=== PATIENT | male | born 1935 | race Caucasian/White ===

== ENCOUNTER 2017-04-15 08:40 | Day surgery (SDC) | payer MEDICARE, BC ==
[2017-04-15] MEDS: NS 1,000 ML IV (09:00)
[2017-04-15] MEDS ORDERED: PROPOFOL 500 MG/50 ML VIAL As Ordered (11:02)
[2017-04-15] MEDS ORDERED: LIDOCAINE 2% INJ 100 MG/5 ML SDV (FOR ANES.) As Ordered (11:02)
== END 2017-04-15 10:54 | disposition home or self-care (01) ==
LOC: M OPP 08:40
DX: D50.9 Iron deficiency anemia, unspecified (principal); K29.70 Gastritis, unspecified, without bleeding; K44.9 Diaphragmatic hernia without obstruction or gangrene; R00.8 Other abnormalities of heart beat; I25.10 Atherosclerotic heart disease of native coronary artery without angina pectoris; I12.9 Hypertensive chronic kidney disease with stage 1 through stage 4 chronic kidney disease, or unspecified chronic kidney disease; E78.5 Hyperlipidemia, unspecified; Z95.0 Presence of cardiac pacemaker; M10.9 Gout, unspecified; E21.2 Other hyperparathyroidism; K21.9 Gastro-esophageal reflux disease without esophagitis; R12 Heartburn; M19.90 Unspecified osteoarthritis, unspecified site; J45.909 Unspecified asthma, uncomplicated; G47.8 Other sleep disorders; G47.30 Sleep apnea, unspecified; R06.83 Snoring; N18.4 Chronic kidney disease, stage 4 (severe); N40.1 Benign prostatic hyperplasia with lower urinary tract symptoms; Z96.641 Presence of right artificial hip joint; Z91.018 Allergy to other foods; Z91.048 Other nonmedicinal substance allergy status; Z91.040 Latex allergy status; Z79.82 Long term (current) use of aspirin; Z79.899 Other long term (current) drug therapy
CPT/HCPCS: 43239

== ENCOUNTER 2018-10-13 07:52 | Day surgery (SDC) | payer MEDICARE, BC ==
[~2018-10-13] VITALS: Ht 167.6 cm; Wt 83.9 kg
[~2018-10-13 07:52] MED LIST: ADV100INH INH; ASPI81TA26 PO; ATOR1TAB19 PO; BISO5TAB14 PO; D31000CA4 PO; FEBU40TA4 PO; FERR1TAB8 PO; FEXO60CA PO; FINA5TAB2 PO; FLOM0.4C39 PO; IRBE150T12 PO; LASI40TA9 PO; LIDOCAINE 2% INJ 100 MG/5 ML SDV (FOR ANES.) As Ordered ONE; LOSA50TA88 PO; NASA1SPR; NEXI40CA PO; NS 1,000 ML IV ONE; VENTAER IN; VITA100067 PO; [UNRECOGNIZED DRUG - CODE] IM; propofoL 200 MG/20 ML VIAL As Ordered ONE
[2018-10-13] MEDS ORDERED: propofoL 200 MG/20 ML VIAL As Ordered ONE ×2 (09:14→10:28)
[2018-10-13] MEDS ORDERED: LIDOCAINE 2% INJ 100 MG/5 ML SDV (FOR ANES.) As Ordered ONE (09:14)
--- NOTE | 2018-10-13 10:58 | ROOR ---
Patient Name: Kendall Bergman Procedure Date: 10/13/2018 10:08 AM Date of : 1935 Age: 82 Room: [facility] Gender: Male Note Status: Finalized Procedure: Colonoscopy Indications: Iron deficiency anemia Providers: Edwin Fu MD Referring MD: BRYAN MAHONEY MD Requesting Provider: Medicines: Monitored Anesthesia Care Complications: No immediate complications. Procedure: Pre-Anesthesia Assessment: - Prior to the procedure, a History and Physical was performed, and patient medications and allergies were reviewed. The patient is competent. The risks and benefits of the procedure and the sedation options and risks were discussed with the patient. All questions were answered and informed consent was obtained. Patient identification and proposed procedure were verified by the physician, the nurse and the anesthesiologist in the procedure room. Mental Status Examination: alert and oriented. Airway Examination: normal oropharyngeal airway and neck mobility. Respiratory Examination: clear to auscultation. CV Examination: normal. Prophylactic Antibiotics: The patient does not require prophylactic antibiotics. Prior Anticoagulants: The patient has taken no previous anticoagulant or antiplatelet agents. ASA Grade Assessment: II - A patient with mild systemic disease. After reviewing the risks and benefits, the patient was deemed in satisfactory condition to undergo the procedure. The anesthesia plan was to use monitored anesthesia care (MAC). Immediately prior to administration of medications, the patient was re-assessed for adequacy to receive sedatives. The heart rate, respiratory rate, oxygen saturations, blood pressure, adequacy of pulmonary ventilation, and response to care were monitored throughout the procedure. The physical status of the patient was re-assessed after the procedure. The Colonoscope was introduced through the anus and advanced to the cecum, identified by appendiceal orifice and ileocecal valve. The colonoscopy was performed without difficulty. The patient tolerated the procedure well. The quality of the bowel preparation was good. The ileocecal valve, appendiceal orifice, and rectum were photographed. Scope insertion time was 3 minutes. Scope withdrawal time was 10 minutes. The total duration of the procedure was 14 minutes. Findings: The perianal and digital rectal examinations were normal. Four sessile polyps were found in the transverse colon and ascending colon. The polyps were 4 to 6 mm in size. These polyps were removed with a cold snare. Resection and retrieval were complete. Verification of patient identification for the specimen was done by the physician and nurse using the patient's name, date and medical record number. Estimated blood loss was minimal. A few small-mouthed diverticula were found in the sigmoid colon. There was no evidence of diverticular bleeding. Non-bleeding external and internal hemorrhoids were found during retroflexion. The hemorrhoids were moderate. Impression: - Four 4 to 6 mm polyps in the transverse colon and in the ascending colon, removed with a cold snare. Resected and retrieved. - Mild diverticulosis in the sigmoid colon. There was no evidence of diverticular bleeding. - Non-bleeding external and internal hemorrhoids. Recommendation: - Patient has a contact number available for emergencies. The signs and symptoms of potential delayed complications were discussed with the patient. Return to normal activities tomorrow. Written discharge instructions were provided to the patient. - High fiber diet. - Continue present medications. - Await pathology results. - Repeat colonoscopy is not recommended due to current age (66 years or older) for screening purposes and depending on clinical and functional status. - Telephone GI clinic for pathology results in 2 weeks. - Return to primary care physician. Edwin Fu MD Edwin Fu MD 10/13/2018 10:58:11 AM Electronically signed by Edwin Fu MD Number of Addenda: 0 Note Initiated On: 10/13/2018 10:08 AM Estimated Blood Loss: Estimated blood loss was minimal.
[2018-10-13 11:20] VITALS: BP 136/81
== END 2018-10-13 11:40 | disposition home or self-care (01) ==
LOC: M OPP 07:52
PROVIDERS: ATTEND Internal Medicine Gastroenterology
DX: D12.2 Benign neoplasm of ascending colon (principal); D12.3 Benign neoplasm of transverse colon; K57.30 Diverticulosis of large intestine without perforation or abscess without bleeding; K64.8 Other hemorrhoids; D50.9 Iron deficiency anemia, unspecified

== ENCOUNTER 2022-10-18 13:35 | Inpatient (IN) | payer MEDICARE, BC ==
[~2022-10-18] VITALS: Ht 157.5 cm; Wt 69.4 kg
[2022-10-18] VITALS (8 sets, daily range): BP systolic 101–148; BP diastolic 48–65; TEMP 96.7–98.3; O2SAT 98–100
[~2022-10-18 13:35] MED LIST changes: -FEXO60CA PO; +FEXO60TA99 PO; -IRBE150T12 PO; +IRBE150T7 PO; -LIDOCAINE 2% INJ 100 MG/5 ML SDV (FOR ANES.) As Ordered ONE; +LOSA50TA28 PO; -LOSA50TA88 PO; -NS 1,000 ML IV ONE; -VENTAER IN; +VENTAER INH; -propofoL 200 MG/20 ML VIAL As Ordered ONE
[2022-10-18 15:05] LABS: MEAN CORPUSCULAR HEMOGLOBIN 32.5 pg (27.0-33.0); MEAN CORPUSCULAR HGB CONC 32.8 g/dl (32.0-36.5); RED BLOOD COUNT 1.97 10^6/uL (4.30-6.10); WHITE BLOOD COUNT 4.2 10^3/uL (4.0-10.0)
[2022-10-18 15:15] LABS: HEMOGLOBIN 6.4 g/dl (13.5-17.5)
[2022-10-18 15:16] LABS: HEMATOCRIT 19.5 % (42.0-52.0); PLATELET COUNT, AUTOMATED 93 10^3/uL (150-450)
[2022-10-18 15:28] LABS: ANISOCYTOSIS 1+; BASOPHILS 1 % (0-1); EOSINOPHILS 2 % (0-3); LYMPHOCYTES 15 % (16-44); MONOCYTES 8 % (0-5); NEUTROPHILS 73 % (28-66); PLATELET ESTIMATE DECREASED (NORMAL); POLYCHROMASIA 1+
[2022-10-18 15:29] LABS: HYPOCHROMASIA 1+
[2022-10-18 15:30] LABS: CALCIUM LEVEL 8.8 MG/DL (8.3-10.6); CREATININE FOR GFR 3.39 MG/DL (0.70-1.30); GLOMERULAR FILTRATION RATE 18.4 (>35); POTASSIUM SERUM 4.2 MMOL/L (3.5-5.1)
[2022-10-18 18:45] LABS: PERCENT SATURATION 78.7 % (19.7-50.0)
[2022-10-18 18:49] LABS: FERRITIN 822.2 NG/ML (10.5-307.3)
[2022-10-18 18:50] LABS: FOLATE 20.1 NG/ML (>5.4)
[2022-10-18] MEDS: PANTOPRAZOLE 40MG VIAL IV SCH (21:37)
[2022-10-18 22:28] LABS: HEMATOCRIT 24.2 % (42.0-52.0); HEMOGLOBIN 7.9 g/dl (13.5-17.5)
[2022-10-19] VITALS (7 sets, daily range): BP systolic 115–141; BP diastolic 54–65; TEMP 97.6–98.8; O2SAT 96–100
[2022-10-19] MEDS ORDERED: ACETAMINOPHEN TAB 650MG DOSE (2X325MG) PO PRN (04:00)
[2022-10-19 05:30] LABS: CALCIUM LEVEL 8.4 MG/DL (8.3-10.6); CREATININE FOR GFR 4.33 MG/DL (0.70-1.30); GLOMERULAR FILTRATION RATE 13.9 (>35); POTASSIUM SERUM 4.4 MMOL/L (3.5-5.1)
[2022-10-19 05:35] LABS: HEMATOCRIT 24.4 % (42.0-52.0); MEAN CORPUSCULAR HEMOGLOBIN 31.3 pg (27.0-33.0); MEAN CORPUSCULAR HGB CONC 32.8 g/dl (32.0-36.5); MEAN CORPUSCULAR VOLUME 95.3 fl (80.0-96.0); RED BLOOD COUNT 2.56 10^6/uL (4.30-6.10); WHITE BLOOD COUNT 4.2 10^3/uL (4.0-10.0)
[2022-10-19 05:40] LABS: PLATELET COUNT, AUTOMATED 85 10^3/uL (150-450)
[2022-10-19] MEDS ORDERED: HEPARIN 1,000UNITS/ML 10ML VIAL (FOR RADIOLOGY & DIALYSIS ONLY) IV PRN (06:00)
[2022-10-19] MEDS ORDERED: HEPARIN 1,000UNITS/ML 10ML VIAL (FOR RADIOLOGY & DIALYSIS ONLY) XX SCH (06:00)
[2022-10-19] MEDS ORDERED: SODIUM CHLORIDE 0.9% 1000ML IV PRN (06:00)
[2022-10-19] MEDS: ALBUTEROL 90 MCG/ACT 8GM HFA INHALER INH PRN (08:09)
[2022-10-19 09:01] LABS: HEPATITIS B SURFACE ANTIBODY POSITIVE (POSITIVE)
[2022-10-19 09:35] LABS: HEPATITIS C VIRUS ABY INDEX 0.14 INDEX (<0.8)
[2022-10-19 10:31] LABS: HEPATITIS B CORE ANTIBODY IGM NEGATIVE (NEGATIVE)
[2022-10-19] MEDS ORDERED: DARBEPOETIN 200MCG/0.4ML *NON-DIALYSIS* SYRINGE SC SCH (10:35)
[2022-10-19] MEDS: PANTOPRAZOLE 40MG VIAL IV SCH ×2 (13:39→20:30)
[2022-10-19 14:04] LABS: HEMATOCRIT 26.1 % (42.0-52.0); HEMOGLOBIN 8.7 g/dl (13.5-17.5)
[2022-10-19] MEDS ORDERED: FEBU40TA2 PO (15:04)
[2022-10-19] MEDS ORDERED: FLUT50SP17 NARES (15:04)
[2022-10-19] MEDS ORDERED: CALC667T2 PO (15:04)
[2022-10-19] MEDS ORDERED: TORS100T PO (15:04)
[2022-10-19] MEDS ORDERED: ROSU10TA6 PO (15:04)
[2022-10-19] MEDS ORDERED: RAMI1CAP21 PO (15:04)
[2022-10-19] MEDS ORDERED: CARV3.12 PO (15:04)
[2022-10-19] MEDS ORDERED: RENATAB5 PO (15:04)
[2022-10-19] MEDS ORDERED: PANT20TA6 PO (15:04)
[2022-10-19] MEDS ORDERED: HOME MED LIST COMPLETE! XX SCH (15:05)
[2022-10-19] MEDS ORDERED: PILL CUTTER 1 EACH XX PRN (18:35)
[2022-10-19] MEDS: ADVAIR HFA 45/21MCG INHALER INH SCH (19:40)
[2022-10-19] MEDS: TAMSULOSIN 0.4 MG CAP PO SCH (20:30)
[2022-10-19 21:18] LABS: HEMATOCRIT 25.9 % (42.0-52.0); HEMOGLOBIN 8.4 g/dl (13.5-17.5)
[2022-10-20] MEDS: ALBUTEROL 90 MCG/ACT 8GM HFA INHALER INH PRN (00:19)
[2022-10-20 04:12] VITALS: BP 113/55; TEMP 98; O2SAT 96
[2022-10-20 05:11] LABS: HEMATOCRIT 24.3 % (42.0-52.0); HEMOGLOBIN 7.9 g/dl (13.5-17.5); MEAN CORPUSCULAR HEMOGLOBIN 31.6 pg (27.0-33.0); MEAN CORPUSCULAR HGB CONC 32.5 g/dl (32.0-36.5); MEAN CORPUSCULAR VOLUME 97.2 fl (80.0-96.0); WHITE BLOOD COUNT 3.3 10^3/uL (4.0-10.0)
[2022-10-20 05:17] LABS: PLATELET COUNT, AUTOMATED 85 10^3/uL (150-450)
[2022-10-20 05:29] LABS: CALCIUM LEVEL 7.9 MG/DL (8.3-10.6); CREATININE FOR GFR 3.43 MG/DL (0.70-1.30); GLOMERULAR FILTRATION RATE 18.1 (>35); POTASSIUM SERUM 3.7 MMOL/L (3.5-5.1)
[2022-10-20] MEDS ORDERED: CALCIUM CARBONATE 500 MG CHEW U/D PO ONE (06:00)
[2022-10-20] MEDS ORDERED: SODIUM CHLORIDE 0.9% 1000ML IV PRN (06:00)
[2022-10-20] MEDS ORDERED: HEPARIN 1,000UNITS/ML 10ML VIAL (FOR RADIOLOGY & DIALYSIS ONLY) XX SCH (06:00)
[2022-10-20] MEDS ORDERED: HEPARIN 1,000UNITS/ML 10ML VIAL (FOR RADIOLOGY & DIALYSIS ONLY) IV PRN (06:00)
[2022-10-20] MEDS: ADVAIR HFA 45/21MCG INHALER INH SCH ×2 (07:04→20:04)
[2022-10-20] MEDS: CALCIUM ACETATE 667MG GELCAP PO SCH ×3 (08:00→18:25)
[2022-10-20 08:10] VITALS: BP 118/50; TEMP 97.6; O2SAT 98
[2022-10-20] MEDS: CARVedilol 3.125 MG TAB PO SCH (08:13)
[2022-10-20] MEDS: PANTOPRAZOLE 40MG VIAL IV SCH ×2 (08:21→21:21)
[2022-10-20] MEDS: ROSUVASTATIN 10 MG TAB (CRESTOR) PO SCH (08:21)
[2022-10-20] MEDS: FINASTERIDE 5MG TAB PO SCH (08:21)
[2022-10-20] MEDS: ASPIRIN 81MG ENTERIC TABLET PO SCH (08:21)
[2022-10-20] MEDS: FLUTICASONE PROP 0.05% NASAL SPRAY 16 GM (FLONASE) NARES SCH (08:21)
[2022-10-20] MEDS: TAMSULOSIN 0.4 MG CAP PO SCH ×2 (08:21→21:21)
[2022-10-20 13:15] VITALS: BP 133/64; TEMP 97.8; O2SAT 100
[2022-10-20] MEDS: TORSEMIDE (DEMADEX) 50 MG PER 1/2 TAB PO SCH (13:20)
[2022-10-20] MEDS: FEBUXOSTAT 40 MG TABLET (ULORIC) PO SCH (13:20)
[2022-10-20 14:29] LABS: HEMATOCRIT 27.4 % (42.0-52.0); HEMOGLOBIN 8.6 g/dl (13.5-17.5)
[2022-10-20 16:02] VITALS: BP 113/56; TEMP 97.5; O2SAT 99
[2022-10-20 20:22] VITALS: BP 122/57; TEMP 98; O2SAT 100
[2022-10-21 00:02] VITALS: BP 121/60; TEMP 98.2; O2SAT 98
[2022-10-21 04:07] VITALS: BP 111/55; TEMP 98; O2SAT 98
[2022-10-21 05:25] LABS: HEMATOCRIT 25.1 % (42.0-52.0); HEMOGLOBIN 8.2 g/dl (13.5-17.5); MEAN CORPUSCULAR HEMOGLOBIN 32.2 pg (27.0-33.0); MEAN CORPUSCULAR HGB CONC 32.7 g/dl (32.0-36.5); MEAN CORPUSCULAR VOLUME 98.4 fl (80.0-96.0); RED BLOOD COUNT 2.55 10^6/uL (4.30-6.10); WHITE BLOOD COUNT 2.9 10^3/uL (4.0-10.0)
[2022-10-21 05:26] LABS: PLATELET COUNT, AUTOMATED 86 10^3/uL (150-450)
[2022-10-21] MEDS: ALBUTEROL 90 MCG/ACT 8GM HFA INHALER INH PRN (05:53)
[2022-10-21 05:57] LABS: CALCIUM LEVEL 8.6 MG/DL (8.3-10.6); CREATININE FOR GFR 2.8 MG/DL (0.70-1.30); GLOMERULAR FILTRATION RATE 22.9 (>35); POTASSIUM SERUM 3.4 MMOL/L (3.5-5.1)
[2022-10-21] MEDS ORDERED: POTASSIUM CHLORIDE 10MEQ SR TABLET PO ONE (07:25)
[2022-10-21 07:39] LABS: BASO # 0.1 10^3/uL (0.0-0.2); BASO % 1.7 % (0.0-1.0); EOS # 0.2 10^3/uL (0.0-0.5); EOS % 5.3 % (0.0-3.0); LYMPH # 0.4 10^3/uL (1.5-5.0); LYMPH % 12.7 % (24.0-44.0); MONO # 0.4 10^3/uL (0.0-0.8)
[2022-10-21] MEDS: ADVAIR HFA 45/21MCG INHALER INH SCH ×2 (07:52→21:18)
[2022-10-21 08:24] LABS: PLATELET ESTIMATE DECREASED (NORMAL)
[2022-10-21] MEDS: TAMSULOSIN 0.4 MG CAP PO SCH ×2 (09:00→20:52)
[2022-10-21] MEDS: CARVedilol 3.125 MG TAB PO SCH ×2 (09:00→09:02)
[2022-10-21] MEDS: CALCIUM ACETATE 667MG GELCAP PO SCH ×3 (09:00→19:13)
[2022-10-21] MEDS: PANTOPRAZOLE 40MG VIAL IV SCH ×2 (09:00→20:52)
[2022-10-21] MEDS: ROSUVASTATIN 10 MG TAB (CRESTOR) PO SCH (09:01)
[2022-10-21] MEDS: TORSEMIDE (DEMADEX) 50 MG PER 1/2 TAB PO SCH (09:01)
[2022-10-21] MEDS: FEBUXOSTAT 40 MG TABLET (ULORIC) PO SCH (09:01)
[2022-10-21] MEDS: ASPIRIN 81MG ENTERIC TABLET PO SCH (09:01)
[2022-10-21] MEDS: FLUTICASONE PROP 0.05% NASAL SPRAY 16 GM (FLONASE) NARES SCH (09:02)
[2022-10-21] MEDS: FINASTERIDE 5MG TAB PO SCH (09:03)
[2022-10-21 12:00] VITALS: BP 107/54; TEMP 97.6; O2SAT 100
[2022-10-21 12:38] LABS: ALBUMIN 2.7 G/DL (3.2-5.2); BILIRUBIN,DIRECT 0.4 MG/DL (<0.4); BILIRUBIN,TOTAL 0.8 MG/DL (0.3-1.2); TOTAL PROTEIN 5.7 G/DL (5.7-8.2)
[2022-10-21 20:58] VITALS: BP 114/62; TEMP 97.4; O2SAT 99
[2022-10-22] MEDS: ALBUTEROL 90 MCG/ACT 8GM HFA INHALER INH PRN (03:07)
[2022-10-22] MEDS: PANTOPRAZOLE 40MG VIAL IV SCH (05:57)
[2022-10-22 05:58] VITALS: BP 128/56
[2022-10-22] MEDS: CARVedilol 3.125 MG TAB PO SCH (05:58)
[2022-10-22] MEDS: TAMSULOSIN 0.4 MG CAP PO SCH (05:58)
[2022-10-22] MEDS: FINASTERIDE 5MG TAB PO SCH (05:58)
[2022-10-22] MEDS: ROSUVASTATIN 10 MG TAB (CRESTOR) PO SCH (05:58)
[2022-10-22] MEDS: FEBUXOSTAT 40 MG TABLET (ULORIC) PO SCH (05:58)
[2022-10-22] MEDS: TORSEMIDE (DEMADEX) 50 MG PER 1/2 TAB PO SCH ×2 (05:59→09:00)
[2022-10-22] MEDS: CALCIUM ACETATE 667MG GELCAP PO SCH ×2 (05:59→13:19)
[2022-10-22] MEDS: ASPIRIN 81MG ENTERIC TABLET PO SCH (05:59)
[2022-10-22] MEDS ORDERED: HEPARIN 1,000UNITS/ML 10ML VIAL (FOR RADIOLOGY & DIALYSIS ONLY) IV PRN (06:00)
[2022-10-22] MEDS ORDERED: SODIUM CHLORIDE 0.9% 1000ML IV PRN (06:00)
[2022-10-22] MEDS ORDERED: HEPARIN 1,000UNITS/ML 10ML VIAL (FOR RADIOLOGY & DIALYSIS ONLY) XX SCH (06:00)
[2022-10-22 06:11] VITALS: BP 125/53; TEMP 97.7; O2SAT 98
[2022-10-22 06:55] LABS: HEMATOCRIT 26.6 % (42.0-52.0); HEMOGLOBIN 8.5 g/dl (13.5-17.5); MEAN CORPUSCULAR HEMOGLOBIN 32.1 pg (27.0-33.0); MEAN CORPUSCULAR VOLUME 100.4 fl (80.0-96.0); RED BLOOD COUNT 2.65 10^6/uL (4.30-6.10); WHITE BLOOD COUNT 4.4 10^3/uL (4.0-10.0)
[2022-10-22 06:57] LABS: PLATELET COUNT, AUTOMATED 89 10^3/uL (150-450)
[2022-10-22] MEDS: ADVAIR HFA 45/21MCG INHALER INH SCH (07:41)
[2022-10-22 07:43] LABS: IMMUNOGLOBULIN A 326.5 MG/DL (40-350); IMMUNOGLOBULIN M 79.4 MG/DL (50-300)
[2022-10-22 07:48] LABS: CALCIUM LEVEL 8.7 MG/DL (8.3-10.6); CREATININE FOR GFR 4.39 MG/DL (0.70-1.30); FREE T4 1.01 NG/DL (0.89-1.76); GLOMERULAR FILTRATION RATE 13.6 (>35); POTASSIUM SERUM 4.4 MMOL/L (3.5-5.1); THYROID STIMULATING HORMONE 7.045 uIU/ML (0.55-4.78)
[2022-10-22] MEDS ORDERED: ramipriL 1.25 MG CAP PO SCH (09:00)
[2022-10-22] MEDS: FLUTICASONE PROP 0.05% NASAL SPRAY 16 GM (FLONASE) NARES SCH (13:21)
[2022-10-22 14:00] VITALS: BP 93/41; TEMP 97.7; O2SAT 97
[2022-10-22] MEDS ORDERED: SUCR1ORA PO (14:16)
[2022-10-22] MEDS ORDERED: PANT40TA29 PO (14:16)
[2022-10-25 18:07] LABS: FREE KAPPA LIGHT CHAINS SERUM 211.9 mg/L (3.3-19.4); FREE LAMBDA LIGHT CHAINS SERUM 104.2 mg/L (5.7-26.3); KAPPA/LAMBDA RATIO SERUM 2.03 (0.26-1.65)
== END 2022-10-22 16:05 | disposition home or self-care (01) | DRG 377 ==
LOC: M ED 13:35 → M ED INP 17:16 → M PCU 20:27 → M MS5PR 10-21 20:33
PROVIDERS: ADMIT Internal Medicine; ATTEND Student in an Organized Health Care Education/Training Program
PROC: 30233N1 Transfusion of Nonautologous Red Blood Cells into Peripheral Vein, Percutaneous Approach (ICD-10-PCS; principal; 2022-10-18)
PROC: 5A1D70Z Performance of Urinary Filtration, Intermittent, Less than 6 Hours Per Day (ICD-10-PCS; 2022-10-20)
DX: K29.71 Gastritis, unspecified, with bleeding (principal); N18.6 End stage renal disease; I13.2 Hypertensive heart and chronic kidney disease with heart failure and with stage 5 chronic kidney disease, or end stage renal disease; I50.32 Chronic diastolic (congestive) heart failure; D61.818 Other pancytopenia; I49.5 Sick sinus syndrome; I25.10 Atherosclerotic heart disease of native coronary artery without angina pectoris; I65.29 Occlusion and stenosis of unspecified carotid artery; Z66 Do not resuscitate; J45.909 Unspecified asthma, uncomplicated; K21.9 Gastro-esophageal reflux disease without esophagitis; D50.9 Iron deficiency anemia, unspecified; R53.1 Weakness; K44.9 Diaphragmatic hernia without obstruction or gangrene; K92.1 Melena; D63.1 Anemia in chronic kidney disease; D69.6 Thrombocytopenia, unspecified; R53.83 Other fatigue; F03.90 Unspecified dementia, unspecified severity, without behavioral disturbance, psychotic disturbance, mood disturbance, and anxiety; Z95.1 Presence of aortocoronary bypass graft; Z95.0 Presence of cardiac pacemaker; Z99.2 Dependence on renal dialysis; Z87.891 Personal history of nicotine dependence; Z79.82 Long term (current) use of aspirin; Z79.899 Other long term (current) drug therapy; Z91.010 Allergy to peanuts; Z91.040 Latex allergy status; Z91.048 Other nonmedicinal substance allergy status

== ENCOUNTER 2022-11-04 08:52 | Observation (INO) | payer BC, MEDICARE, OTHER ==
[~2022-11-04] VITALS: Ht 160 cm; Wt 72.2 kg
[~2022-11-04 08:52] MED LIST changes: +CALC667T2 PO; +CARV3.12 PO; +FEBU40TA2 PO; +FLUT50SP17 NARES; +PANT20TA6 PO; +PANT40TA29 PO; +RAMI1CAP21 PO; +RENATAB5 PO; +ROSU10TA6 PO; +SUCR1ORA PO; +TORS100T PO
[2022-11-04] MEDS: TORSEMIDE 100 MG TAB PO SCH (09:00)
[2022-11-04 10:15] LABS: BASO # 0.1 10^3/uL (0.0-0.2); BASO % 1.6 % (0.0-1.0); EOS # 0.1 10^3/uL (0.0-0.5); EOS % 2.5 % (0.0-3.0); HEMATOCRIT 26.6 % (42.0-52.0); HEMOGLOBIN 8.6 g/dl (13.5-17.5); LYMPH # 0.4 10^3/uL (1.5-5.0); LYMPH % 8.7 % (24.0-44.0); MEAN CORPUSCULAR HGB CONC 32.3 g/dl (32.0-36.5); MEAN CORPUSCULAR VOLUME 98.9 fl (80.0-96.0); MONO # 0.7 10^3/uL (0.0-0.8); MONO % 16.1 % (2.0-8.0); NEUTROPHILS # 3.2 10^3/uL (1.5-8.5); NEUTROPHILS % 70.9 % (36.0-66.0); PLATELET COUNT, AUTOMATED 152 10^3/uL (150-450); RED BLOOD COUNT 2.69 10^6/uL (4.30-6.10); WHITE BLOOD COUNT 4.5 10^3/uL (4.0-10.0)
[2022-11-04 10:34] LABS: CALCIUM LEVEL 9.6 MG/DL (8.3-10.6); CREATININE FOR GFR 4.2 MG/DL (0.70-1.30); GLOMERULAR FILTRATION RATE 14.3 (>35); POTASSIUM SERUM 4.4 MMOL/L (3.5-5.1)
[2022-11-04] MEDS ORDERED: MED REC IN PROGRESS XX SCH (12:20)
[2022-11-04] MEDS ORDERED: HOME MED LIST COMPLETE! XX SCH (12:50)
[2022-11-04] MEDS ORDERED: ACETAMINOPHEN TAB 650MG DOSE (2X325MG) PO PRN (13:55)
[2022-11-04] MEDS ORDERED: ALBUTEROL 90 MCG/ACT 8GM HFA INHALER INH PRN (13:55)
[2022-11-04] MEDS ORDERED: MOM 30ML SUSPENSION UDC PO PRN (13:55)
[2022-11-04] MEDS ORDERED: FLUTICASONE PROP 0.05% NASAL SPRAY 16 GM (FLONASE) NARES PRN (13:55)
[2022-11-04] MEDS: TAMSULOSIN 0.4 MG CAP PO SCH (14:36)
[2022-11-04] MEDS: ASPIRIN 81MG ENTERIC TABLET PO SCH (14:36)
[2022-11-04] MEDS: FINASTERIDE 5MG TAB PO SCH (14:36)
[2022-11-04 15:15] VITALS: BP 106/56; TEMP 97.9; O2SAT 100
[2022-11-04 15:17] LABS: INR 1.4; PROTHROMBIN TIME 16.8 SECONDS (12.5-14.5)
[2022-11-04 15:18] LABS: PARTIAL THROMBOPLASTIN TIME 37.4 SECONDS (24.8-34.2)
[2022-11-04] MEDS: FEBUXOSTAT 40 MG TABLET (ULORIC) PO SCH (15:27)
[2022-11-04] MEDS: CALCIUM ACETATE 667MG GELCAP PO SCH (18:17)
[2022-11-04 18:36] LABS: HEMATOCRIT 27.2 % (42.0-52.0); HEMOGLOBIN 8.6 g/dl (13.5-17.5)
[2022-11-04] MEDS ORDERED: ISOVUE-370 76% 100ML VIAL As Ordered ONE (19:56)
[2022-11-04] MEDS: ADVAIR HFA 45/21MCG INHALER INH SCH (20:00)
[2022-11-04 21:30] VITALS: BP 127/50; TEMP 97.9; O2SAT 99
[2022-11-04] MEDS: DOCUSATE SODIUM 100MG CAPSULE PO SCH (21:48)
[2022-11-04] MEDS: cefTRIAXone SOD 1 GM in D5W MINI-BAG PLUS 50 ML IV SCH (21:48)
[2022-11-04] MEDS: CARVedilol 3.125 MG TAB PO SCH (21:49)
[2022-11-04] MEDS: PANTOPRAZOLE 40MG TAB (PROTONIX) PO SCH (21:49)
[2022-11-05] MEDS: ADVAIR HFA 45/21MCG INHALER INH SCH ×3 (00:26→21:00)
[2022-11-05 05:22] VITALS: BP 114/46; TEMP 97; O2SAT 97
[2022-11-05] MEDS ORDERED: SODIUM CHLORIDE 0.9% 1000ML IV PRN (06:00)
[2022-11-05] MEDS: FEBUXOSTAT 40 MG TABLET (ULORIC) PO SCH (06:11)
[2022-11-05] MEDS: TAMSULOSIN 0.4 MG CAP PO SCH (06:12)
[2022-11-05 06:13] LABS: HEMATOCRIT 24.8 % (42.0-52.0); HEMOGLOBIN 7.9 g/dl (13.5-17.5); MEAN CORPUSCULAR HEMOGLOBIN 31.1 pg (27.0-33.0); MEAN CORPUSCULAR HGB CONC 31.9 g/dl (32.0-36.5); MEAN CORPUSCULAR VOLUME 97.6 fl (80.0-96.0); PLATELET COUNT, AUTOMATED 137 10^3/uL (150-450); RED BLOOD COUNT 2.54 10^6/uL (4.30-6.10); WHITE BLOOD COUNT 3.8 10^3/uL (4.0-10.0)
[2022-11-05] MEDS: CALCIUM ACETATE 667MG GELCAP PO SCH ×3 (06:13→17:04)
[2022-11-05] MEDS: CARVedilol 3.125 MG TAB PO SCH ×2 (06:19→20:21)
[2022-11-05] MEDS: ASPIRIN 81MG ENTERIC TABLET PO SCH (06:19)
[2022-11-05] MEDS: FINASTERIDE 5MG TAB PO SCH (06:20)
[2022-11-05] MEDS: DOCUSATE SODIUM 100MG CAPSULE PO SCH ×2 (06:20→20:21)
[2022-11-05] MEDS: TORSEMIDE 100 MG TAB PO SCH (06:20)
[2022-11-05] MEDS: PANTOPRAZOLE 40MG TAB (PROTONIX) PO SCH ×2 (06:20→20:21)
[2022-11-05 06:44] LABS: CALCIUM LEVEL 8.8 MG/DL (8.3-10.6); CREATININE FOR GFR 5.3 MG/DL (0.70-1.30); POTASSIUM SERUM 4.8 MMOL/L (3.5-5.1)
[2022-11-05] MEDS ORDERED: QUEtiapine FUMARATE 12.5 MG HALF-TAB PO PRN (13:50)
[2022-11-05] MEDS ORDERED: CALCITRIOL 0.25 MCG CAP (S0169) PO SCH (16:00)
[2022-11-05 18:33] LABS: HEMATOCRIT 27.1 % (42.0-52.0); HEMOGLOBIN 8.5 g/dl (13.5-17.5)
[2022-11-05 20:15] VITALS: BP 107/43; TEMP 97.9; O2SAT 98
[2022-11-05] MEDS: cefTRIAXone SOD 1 GM in D5W MINI-BAG PLUS 50 ML IV SCH (20:22)
[2022-11-06 05:00] VITALS: BP 117/44; TEMP 98.2; O2SAT 97
[2022-11-06 06:07] LABS: HEMATOCRIT 25.3 % (42.0-52.0); HEMOGLOBIN 7.9 g/dl (13.5-17.5); MEAN CORPUSCULAR HEMOGLOBIN 30.9 pg (27.0-33.0); MEAN CORPUSCULAR HGB CONC 31.2 g/dl (32.0-36.5); MEAN CORPUSCULAR VOLUME 98.8 fl (80.0-96.0); PLATELET COUNT, AUTOMATED 155 10^3/uL (150-450); RED BLOOD COUNT 2.56 10^6/uL (4.30-6.10); WHITE BLOOD COUNT 4.2 10^3/uL (4.0-10.0)
[2022-11-06 06:23] LABS: CALCIUM LEVEL 9.1 MG/DL (8.3-10.6); CREATININE FOR GFR 3.88 MG/DL (0.70-1.30); GLOMERULAR FILTRATION RATE 15.7 (>35); POTASSIUM SERUM 4.4 MMOL/L (3.5-5.1)
[2022-11-06] MEDS: ADVAIR HFA 45/21MCG INHALER INH SCH (07:33)
[2022-11-06] MEDS ORDERED: PILL CUTTER 1 EACH XX PRN (08:15)
[2022-11-06] MEDS: CALCIUM ACETATE 667MG GELCAP PO SCH (08:21)
[2022-11-06] MEDS: FINASTERIDE 5MG TAB PO SCH (08:21)
[2022-11-06] MEDS: FEBUXOSTAT 40 MG TABLET (ULORIC) PO SCH (08:21)
[2022-11-06 08:24] VITALS: BP 114/44
[2022-11-06] MEDS: CARVedilol 3.125 MG TAB PO SCH (08:24)
[2022-11-06] MEDS: ASPIRIN 81MG ENTERIC TABLET PO SCH (08:25)
[2022-11-06] MEDS: PANTOPRAZOLE 40MG TAB (PROTONIX) PO SCH ×2 (08:25→08:52)
[2022-11-06] MEDS: DOCUSATE SODIUM 100MG CAPSULE PO SCH (08:25)
[2022-11-06] MEDS: TAMSULOSIN 0.4 MG CAP PO SCH (08:25)
[2022-11-06] MEDS: TORSEMIDE 100 MG TAB PO SCH (08:25)
[2022-11-06] MEDS ORDERED: CALC1CAP31 PO (09:23)
[2022-11-06] MEDS ORDERED: CEFD300CAP PO (09:23)
[2022-11-06] MEDS ORDERED: QUET1TAB17 PO (09:23)
[2022-11-06] MEDS ORDERED: CEFDINIR 300 MG CAP (OMNICEF) PO ONE (10:00)
== END 2022-11-06 12:36 | disposition home or self-care (01) ==
LOC: M ED 08:52 → M ED INP 13:55 → ENRESERV 14:46 → M MSPAV 15:11
PROVIDERS: ADMIT Student in an Organized Health Care Education/Training Program; ATTEND Student in an Organized Health Care Education/Training Program
DX: K62.5 Hemorrhage of anus and rectum (principal); N18.6 End stage renal disease; D63.1 Anemia in chronic kidney disease; N39.0 Urinary tract infection, site not specified; D61.818 Other pancytopenia; F03.92 Unspecified dementia, unspecified severity, with psychotic disturbance; K44.9 Diaphragmatic hernia without obstruction or gangrene; I25.10 Atherosclerotic heart disease of native coronary artery without angina pectoris; Z95.1 Presence of aortocoronary bypass graft; I77.9 Disorder of arteries and arterioles, unspecified; I50.9 Heart failure, unspecified; I12.0 Hypertensive chronic kidney disease with stage 5 chronic kidney disease or end stage renal disease; I49.5 Sick sinus syndrome; K21.9 Gastro-esophageal reflux disease without esophagitis; J45.909 Unspecified asthma, uncomplicated; Z91.010 Allergy to peanuts; Z91.040 Latex allergy status; Z79.82 Long term (current) use of aspirin; Z79.2 Long term (current) use of antibiotics; Z79.899 Other long term (current) drug therapy
CPT/HCPCS: 36415; 71045; 74177; 80048; 81000; 81015; 85014; 85018; 85025; 85027; 85610; 85730; 86850; 86900; 86901; 87086; 87635; 93005; 94640; 96365; 96366; 97116; 97161; 99285; G0257; G0378; J0696; Q9967

== ENCOUNTER 2022-11-19 13:50 | Observation (INO) | payer MEDICARE, OTHER ==
[~2022-11-19] VITALS: Ht 160 cm; Wt 72.6 kg
[~2022-11-19 13:50] MED LIST changes: +CALC1CAP31 PO; +CEFD300CAP PO; +QUET1TAB17 PO
[2022-11-19 15:40] LABS: HEMATOCRIT 22.5 % (42.0-52.0); MEAN CORPUSCULAR HEMOGLOBIN 29.9 pg (27.0-33.0); MEAN CORPUSCULAR HGB CONC 31.1 g/dl (32.0-36.5); MEAN CORPUSCULAR VOLUME 96.2 fl (80.0-96.0); PLATELET COUNT, AUTOMATED 150 10^3/uL (150-450); RED BLOOD COUNT 2.34 10^6/uL (4.30-6.10)
[2022-11-19 16:16] LABS: CALCIUM LEVEL 8.9 MG/DL (8.3-10.6); CREATININE FOR GFR 2.57 MG/DL (0.70-1.30); GLOMERULAR FILTRATION RATE 25.3 (>35)
[2022-11-19] MEDS ORDERED: MED REC IN PROGRESS XX SCH (16:50)
[2022-11-19] MEDS ORDERED: ACETAMINOPHEN TAB 650MG DOSE (2X325MG) PO PRN (17:50)
[2022-11-19] MEDS ORDERED: FLUTICASONE PROP 0.05% NASAL SPRAY 16 GM (FLONASE) NARES PRN (17:55)
[2022-11-19] MEDS ORDERED: ALBUTEROL 90 MCG/ACT 8GM HFA INHALER INH PRN (17:55)
[2022-11-19] MEDS ORDERED: ROSU10TA6 PO (18:10)
[2022-11-19] MEDS ORDERED: MIRT1TAB PO (18:10)
[2022-11-19] MEDS ORDERED: HOME MED LIST COMPLETE! XX SCH (18:15)
[2022-11-19] MEDS ORDERED: QUEtiapine FUMARATE 25 MG TAB PO PRN (18:40)
[2022-11-19] MEDS ORDERED: ADVAIR HFA 45/21MCG INHALER INH SCH (20:00)
[2022-11-19] MEDS: PANTOPRAZOLE 40MG VIAL IV SCH (21:00)
[2022-11-19] MEDS: TAMSULOSIN 0.4 MG CAP PO SCH (21:00)
[2022-11-19] MEDS ORDERED: MIRTAZAPINE 7.5MG PER 1/2 TABLET PO SCH (21:00)
[2022-11-19] MEDS ORDERED: RAMELTEON 8 MG TAB (ROZEREM) PO SCH (21:00)
[2022-11-19] MEDS: CARVedilol 3.125 MG TAB PO SCH (21:00)
[2022-11-19 21:59] VITALS: BP 132/52; TEMP 98.1; O2SAT 97
[2022-11-19 22:37] VITALS: BP 132/52; TEMP 98.1; O2SAT 97
[2022-11-19 22:53] VITALS: BP 130/54; TEMP 98.4; O2SAT 97
[2022-11-19 23:22] VITALS: BP 130/56; TEMP 98.6; O2SAT 95
[2022-11-20] VITALS (7 sets, daily range): BP systolic 99–136; BP diastolic 40–54; TEMP 98.1–98.8; O2SAT 94–99
[2022-11-20 04:20] LABS: HEMATOCRIT 30.6 % (42.0-52.0); MEAN CORPUSCULAR HEMOGLOBIN 29.1 pg (27.0-33.0); MEAN CORPUSCULAR VOLUME 90.8 fl (80.0-96.0); PLATELET COUNT, AUTOMATED 151 10^3/uL (150-450); RED BLOOD COUNT 3.37 10^6/uL (4.30-6.10); WHITE BLOOD COUNT 5.9 10^3/uL (4.0-10.0)
[2022-11-20 04:22] LABS: HEMOGLOBIN 9.8 g/dl (13.5-17.5)
[2022-11-20 04:41] LABS: ALBUMIN 2.6 G/DL (3.2-5.2); BILIRUBIN,TOTAL 1.7 MG/DL (0.3-1.2); CALCIUM LEVEL 9.4 MG/DL (8.3-10.6); CREATININE FOR GFR 3.46 MG/DL (0.70-1.30); GLOMERULAR FILTRATION RATE 17.9 (>35); POTASSIUM SERUM 4.2 MMOL/L (3.5-5.1); TOTAL PROTEIN 6.3 G/DL (5.7-8.2)
[2022-11-20 08:02] LABS: INR 1.33; PROTHROMBIN TIME 16.1 SECONDS (12.5-14.5)
[2022-11-20 08:04] LABS: PARTIAL THROMBOPLASTIN TIME 36.3 SECONDS (24.8-34.2)
[2022-11-20] MEDS ORDERED: FINASTERIDE 5MG TAB PO SCH (09:00)
[2022-11-20] MEDS ORDERED: ASPIRIN 81MG ENTERIC TABLET PO SCH (09:00)
[2022-11-20] MEDS ORDERED: ROSUVASTATIN 10 MG TAB (CRESTOR) PO SCH (09:00)
[2022-11-20] MEDS ORDERED: TORSEMIDE (DEMADEX) 50 MG PER 1/2 TAB PO SCH (09:00)
[2022-11-20] MEDS: PANTOPRAZOLE 40MG VIAL IV SCH (11:18)
[2022-11-20] MEDS: CARVedilol 3.125 MG TAB PO SCH (11:24)
[2022-11-20] MEDS: TAMSULOSIN 0.4 MG CAP PO SCH (11:24)
== END 2022-11-20 13:50 | disposition home or self-care (01) ==
LOC: M ED 13:50 → M ED INP 13:51 → ENRESERV 19:54 → M MS5PR 21:53
PROVIDERS: ADMIT Internal Medicine; ATTEND Internal Medicine
DX: K29.01 Acute gastritis with bleeding (principal); N18.6 End stage renal disease; D63.1 Anemia in chronic kidney disease; R53.1 Weakness; D69.6 Thrombocytopenia, unspecified; D61.818 Other pancytopenia; F03.90 Unspecified dementia, unspecified severity, without behavioral disturbance, psychotic disturbance, mood disturbance, and anxiety; I25.10 Atherosclerotic heart disease of native coronary artery without angina pectoris; I49.5 Sick sinus syndrome; I50.9 Heart failure, unspecified; K21.9 Gastro-esophageal reflux disease without esophagitis; K44.9 Diaphragmatic hernia without obstruction or gangrene; I12.0 Hypertensive chronic kidney disease with stage 5 chronic kidney disease or end stage renal disease; Z79.82 Long term (current) use of aspirin; Z79.899 Other long term (current) drug therapy; Z91.010 Allergy to peanuts; Z91.040 Latex allergy status; J30.2 Other seasonal allergic rhinitis; J45.909 Unspecified asthma, uncomplicated; Z79.51 Long term (current) use of inhaled steroids
CPT/HCPCS: 36415; 36430; 71045; 80048; 80053; 85027; 85610; 85730; 86850; 86900; 86901; 86920; 87635; 93005; 94640; 94664; 96374; 97116; 97161; 99285; C9113; G0378; P9016